=== PATIENT | female | born 1940 | race Caucasian/White ===

== ENCOUNTER → 2023-08-07 12:37 | Outpatient (REF) | payer MEDICARE, SELFPAY | LOC: MRI 12:37 | PROVIDERS: ATTENDING PHYSICIAN Nurse Practitioner Adult Health | DX: R42 Dizziness and giddiness (principal) | CPT/HCPCS: 70551 ==

== ENCOUNTER → 2023-11-06 10:07 | Outpatient (REF) | payer MEDICARE, SELFPAY ==
[2023-11-06 11:35] LABS: % Basophils 0.6 % (0-2); % Eosinophils 2.5 % (0-6); % Immature Granulocytes 0.2 % (0-0.5); % Lymphocytes 24.2 % (20.5-51.1); % Monocytes 7.5 % (1.7-9.3); Absolute Eosinophils 0.1 10^3/uL (0-0.7); Absolute Lymphocytes 1.2 10^3/uL (1.2-3.4); Absolute Monocytes 0.4 10^3/uL (0.1-0.6); Absolute Neutrophils 3.1 10^3/uL (1.4-6.5); Hematocrit 42.1 % (37.0-47.0); Hemoglobin 14.8 g/dL (12.0-16.0); Mean Corp Hgb Conc. 35.2 g/dL (33.0-37.0); Mean Corpuscular Hgb 32.2 pg (27.0-31.0); Mean Corpuscular Volume 91.5 fL (81.0-99.0); Mean Platelet Volume 8.5 fL (7.4-10.4); Nucleated Red Blood Cells % 0 %; Platelet Count 218 10^3/uL (130-400); White Blood Cell Count 4.8 10^3/uL (4.8-10.8)
[2023-11-06 11:39] LABS: APTT 27.3 Sec (23.4-35.0)
[2023-11-06 12:07] LABS: ALT (SGPT) 33 U/L (0-35); AST (SGOT) 34 U/L (14-36); Albumin 4.7 g/dl (3.5-5.0); Alkaline Phosphatase 55 U/L (38-126); Blood Urea Nitrogen 14 mg/dl (7-17); Calcium 10.1 mg/dl (8.4-10.2); Carbon Dioxide 27 mmol/L (22-30); Chloride 97 mmol/L (98-107); Glucose 93 mg/dl (70-99); Potassium 4.7 mmol/L (3.5-5.1); Sodium 132 mmol/L (135-145); Total Bilirubin 0.9 mg/dl (0.2-1.3); Total Protein 6.8 g/dl (6.3-8.2); eGFR > 60.00
== END ==
LOC: REG 10:07
PROVIDERS: ATTENDING PHYSICIAN Internal Medicine Cardiovascular Disease; OTHER PHYSICIAN Internal Medicine Cardiovascular Disease
DX: I48.0 Paroxysmal atrial fibrillation (principal); I44.2 Atrioventricular block, complete; Z79.01 Long term (current) use of anticoagulants
CPT/HCPCS: 36415; 80053; 85025; 85730

== ENCOUNTER 2023-11-19 08:34 | Day surgery (SDC) | payer MEDICARE, SELFPAY ==
[2023-11-19 08:54] VITALS: BP 171/92
[2023-11-19 09:09] VITALS: BMI 22.5
--- NOTE | 2023-11-19 12:18 | ITS.CL.PACE ---
S[employer]ability Coach - Pacemaker Implant
Pacemaker Implant
Procedure Report:
Primary Forklift Mechanic: Tiara Barrientos MD
Procedure Date: 11/19/2023
Name of procedure:
1. Device Revision: Dual Chamber Pacemaker
2. Pulse Generator Change
History:
See H&P for full details.
Patient is a pleasant 83-year-old female with a past medical history significant for paroxysmal atrial fibrillation, hypertension, complete heart block status post dual-chamber pacemaker, Takotsubo cardiomyopathy with recovered LVEF, chronic lacunar
infarct, chronic vertigo, hyponatremia, hypertension, nonrheumatic mitral regurgitation who presents for elective pacemaker generator change. Patient nearing [employer]. Patient is dependent on her device.
Methods:
After informed consent was obtained, the patient was brought to the EP laboratory in a postabsorptive, nonsedated state. Peripheral IV access was established. Prophylactic antibiotics were administered prior to incision. Continues ECG, blood
pressure, and pulse oximetry were initiated. Cardioversion patch electrodes were placed on the patient's chest and back. A grounding patch was applied to the skin. Sedation was administered by anesthesia services.
The left chest was prepared and draped in a sterile fashion. A 'time out' was called. Local anesthesia was injected in the subcutaneous tissue in the infraclavicular area. An incision was made into the chronic scar. With cautious attention to the
leads, the subcutaneous tissue was dissected the level of the device capsule. The capsule was opened, the device was explanted and disconnected from the leads. The leads were inspected and found to be free of visible defect. The leads were tested
and found to have adequate pacing and sensing parameters, consistent with pre-procedure measurements.
The pocket was revised to accommodate the new device. The pocket was flushed with antibiotic solution and hemostasis was assured. Antibiotic envelope was used. The generator was connected to the leads and placed inside the pocket. The wound was
closed with 3 running layers of absorbable suture and steri-strips were applied to the skin.
Following the procedure, the patient was taken to the recovery area in stable condition. No complications were noted.
Lead parameters and device programming:
- RA Lead (Medtronic, model: 5076, SN#[id number]): Sensing 1.0 mV, Pacing threshold 0.5 V at 0.4 ms, Imp 399 ohm
- RV Lead (Medtronic, model: 5076, [id number]): Sensing not performed due to dependence, Pacing threshold 1.25 V at 0.4 ms, Imp 361 ohm
- Device: Medtronic pacemaker model: W1 , [id number], programmed DDDR, lower rate 60, upper rate of 145 ppm, mode switch on
- Explanted device: Medtronic A2 DR [id number]
Recommendations:
1. Discharge home when stable with instructions for site care
2. Follow-up will be arranged in our office 7-10 days post-discharge for incision check
3. OK to resume OAC 11/20/2023 PM
Pasha Beatty DO
Clinical Cardiac Electrophysiology
Copy to: Tiara Barrientos MD; Car;woodrow Sparks MD
[2023-11-19 12:30] VITALS: BP 128/85
[2023-11-19 12:44] VITALS: BP 155/78
[2023-11-19 12:59] VITALS: BP 144/85
== END 2023-11-19 13:28 | disposition home or self-care (01) ==
LOC: CATH 08:34
PROVIDERS: ATTENDING PHYSICIAN Internal Medicine Cardiovascular Disease; FAMILY PHYSICIAN Surgery
DX: Z45.010 Encounter for checking and testing of cardiac pacemaker pulse generator [battery] (principal); I44.2 Atrioventricular block, complete; I48.0 Paroxysmal atrial fibrillation; I10 Essential (primary) hypertension; I34.0 Nonrheumatic mitral (valve) insufficiency
CPT/HCPCS: 33228; C1785